=== PATIENT | male | born 1975 | race Caucasian/White ===

== ENCOUNTER 2022-02-18 12:46 | Emergency (ER) | payer SELFPAY ==
[~2022-02-18] VITALS: Ht 157.5 cm; Wt 86.2 kg
[2022-02-18 12:47] VITALS: BP 156/115
--- NOTE | 2022-02-18 12:54 | NUR ---
SUNDEEP. HANDED ON URINE CUP.
--- NOTE | 2022-02-18 13:32 | NUR ---
PT W/C ASSISTED TO BED8.
[2022-02-18] MEDS ORDERED: NACL 0.9% 1,000 ML IV SCH (13:50)
[2022-02-18] MEDS ORDERED: KETOROLAC 30 MG/ML VIAL IVP ONE (13:50)
--- NOTE | 2022-02-18 14:06 | NUR ---
Dr. Rush at bedside evaluating patient.
[2022-02-18 14:07] LABS: APPEARANCE,URINE CLEAR (CLEAR); BILIRUBIN,URINE NEGATIVE (NEGATIVE); BLOOD, URINE 1+ (NEGATIVE); COLOR,URINE YELLOW (YELLOW); LEUKOCYTE ESTERASE ,URINE NEGATIVE (NEGATIVE); NITRITE, URINE NEGATIVE (NEGATIVE); UGLUCOSE NEGATIVE (NEGATIVE)
[2022-02-18 14:07] LABS: BASOPHILS % (AUTO) 0.3 % (0.0-2.0); EOSINOPHILS # (AUTO) 0.1 K/uL (0-0.4); EOSINOPHILS % (AUTO) 1.5 % (0.0-4.0); HEMATOCRIT 46.2 % (36-52); HEMOGLOBIN 15.9 g/dL (12.0-18.0); LYMPHOCYTES % (AUTO) 24.7 % (20.5-51.1); MEAN CORPUSCULAR HEMOGLOBIN 33 pg (27-31); MEAN CORPUSCULAR HGB CONC 34 g/dL (33-37); MEAN CORPUSCULAR VOLUME 95.3 fL (80-94); MONOCYTES # (AUTO) 0.6 K/uL (0.8-1.0); MONOCYTES % (AUTO) 7.2 % (1.7-9.3); NEUTROPHILS # (AUTO) 5.3 K/uL (1.8-7.7); NEUTROPHILS % (AUTO) 66.3 % (42.2-75.2); PLATELET COUNT (AUTO) 323 K/uL (140-450); RED BLOOD CELL COUNT(AUTO) 4.85 MIL/uL (4.20-6.10); RED CELL DISTRIBUTION WIDTH 13.7 % (11.6-13.7); WHITE BLOOD COUNT (AUTO) 7.9 K/uL (4.8-10.8)
[2022-02-18] MEDS ORDERED: ONDANSETRON 4 MG/2 ML VIAL IVP ONE (14:10)
--- NOTE | 2022-02-18 14:15 | NUR ---
46 y/o male bib self c/o flank pain. Patient states its 1010 radiating to the left side of the flank. Patient denies nausea, vomiting or diarrhea. Patient denies being around anyone who is sick. Medical History: Denies NKDA
--- NOTE | 2022-02-18 14:26 | NUR ---
PT SENT TO CT VIA W/C WITH TECH
[2022-02-18 14:44] LABS: ALBUMIN 3.9 g/dL (3.4-5.0); CARBON DIOXIDE 29.4 mmol/L (21-32); CREATININE 0.8 mg/dL (0.6-1.3); POTASSIUM 3.4 mmol/L (3.5-5.1); TOTAL BILIRUBIN 0.6 mg/dL (0.0-1.0)
[2022-02-18 15:11] LABS: RBC,URINE 0-5 /HPF (0-5)
[2022-02-18 15:12] LABS: WBC,URINE 0-5 /HPF (0-5)
--- NOTE | 2022-02-18 15:20 | NUR ---
DR. WHEELER RE-EVALUATING PATIENT AT BEDSIDE
[2022-02-18 17:00] VITALS: BP 138/84
[2022-02-18] MEDS ORDERED: IBUP-2218 PO (17:39)
[2022-02-18] MEDS ORDERED: DOCU-299 PO (17:39)
[2022-02-18] MEDS ORDERED: HYDR-5080 PO (17:39)
--- NOTE | 2022-02-18 17:55 | NUR ---
Patient discharged with v/s stable. Written and verbal after care instructions given. Patient alert, oriented and verbalized understanding of instructions. Ambulatory with steady gait. All questions addressed prior to discharge. ID band removed. Patient advised to follow up with PMD. Rx of Docusate Sodium, [place] and Ibuprofen given. Opportunity to ask questions provided and answered.
== END 2022-02-18 17:55 | disposition home or self-care (01) ==
LOC: MED 12:46
DX: N20.0 Calculus of kidney (principal); R17 Unspecified jaundice; Z90.49 Acquired absence of other specified parts of digestive tract; Z79.899 Other long term (current) drug therapy; Z79.1 Long term (current) use of non-steroidal anti-inflammatories (NSAID)
CPT/HCPCS: 36415; 74176; 80053; 81001; 83690; 85025; 96361; 96374; 96375; 99284; J1885; J2405